=== PATIENT | male | born 2000 | race Caucasian/White ===

== ENCOUNTER 2022-03-29 08:16 | Day surgery (SDC) | payer OTHER ==
[~2022-03-29] VITALS: Ht 180.3 cm; Wt 85.4 kg
[~2022-03-29 08:16] MED LIST: ceFAZolin SOD 2 GM in IV 1 EA IV ONE
[2022-03-29] MEDS ORDERED: LR 1,000 ML IV SCH ×2 (08:50→13:25)
[2022-03-29] MEDS ORDERED: TRANEXAMIC ACID 100 MG/ML 10ML VIAL As Ordered ONE (10:29)
[2022-03-29] MEDS ORDERED: BUPIVACAINE/EPIN 0.25% 30 ML VIAL As Ordered ONE (10:29)
[2022-03-29] MEDS ORDERED: BUPIVACAINE LIPOSOME/PF 1.3% 20ML VIAL (13.3MG/ML)(EXPAREL) As Ordered ONE (10:30)
[2022-03-29] MEDS ORDERED: ONDANSETRON 4MG 2ML VIAL As Ordered ONE (10:48)
[2022-03-29] MEDS ORDERED: LIDOCAINE 2% 100MG/5ML SDV (FOR ANES.) As Ordered ONE (10:48)
[2022-03-29] MEDS ORDERED: ePHEDrine SULFATE 25 MG/5 ML(5MG/ML) SYRINGE As Ordered ONE (10:48)
[2022-03-29] MEDS ORDERED: propofoL 200 MG/20 ML VIAL As Ordered ONE (10:48)
[2022-03-29] MEDS ORDERED: dexameTHASONE 4 MG/ML 1ML VIAL (J1100 PER 1MG) As Ordered ONE (10:48)
[2022-03-29] MEDS ORDERED: ROCURONIUM BROMIDE 50 MG/5 ML VIAL As Ordered ONE (10:48)
[2022-03-29] MEDS ORDERED: KETOROLAC 60MG 2ML VIAL As Ordered ONE (10:48)
[2022-03-29] MEDS ORDERED: fentaNYL 250 MCG/5 ML INJECTION As Ordered ONE (10:48)
[2022-03-29] MEDS ORDERED: MIDAZOLAM INJ 2MG/2ML VIAL (J2250 PER 1MG) As Ordered ONE (10:48)
[2022-03-29] MEDS ORDERED: SUGAMMADEX SODIUM 500 MG/5 ML VIAL (BRIDION) As Ordered ONE (10:48)
[2022-03-29] MEDS ORDERED: ACETAMINOPHEN 1000MG 100ML IV BTL (OFIRMEV) (J0131 PER 10MG) As Ordered ONE (10:59)
[2022-03-29] MEDS ORDERED: VANCOMYCIN 500MG/10ML VIAL As Ordered ONE (12:29)
[2022-03-29] MEDS ORDERED: MORPHINE 2 MG/ML 1ML VIAL IV PRN (13:25)
[2022-03-29] MEDS ORDERED: ONDANSETRON 4MG 2ML VIAL IV PRN (13:25)
[2022-03-29] MEDS: PERCOCET 5MG/325MG TAB PO PRN ×2 (13:47→14:33)
[2022-03-29] MEDS: fentaNYL 100 MCG/2 ML INJECTION IV PRN ×4 (14:01→14:25)
[2022-03-29 15:05] VITALS: BP 145/71
== END 2022-03-29 15:20 | disposition home or self-care (01) ==
LOC: M SDC 08:16
PROVIDERS: ATTEND Orthopaedic Surgery
DX: S52.021A Displaced fracture of olecranon process without intraarticular extension of right ulna, initial encounter for closed fracture (principal); W19.XXXA Unspecified fall, initial encounter; Y92.84 Military training ground as the place of occurrence of the external cause; Y93.89 Activity, other specified; Y99.1 Military activity
CPT/HCPCS: 24685; 76000; C1713; C1762; C9290; J0131; J0690; J1100; J1885; J2250; J2405; J3010; J3370